=== PATIENT | female | born 1955 | race Caucasian/White ===

== ENCOUNTER 2019-08-09 11:08 | Emergency (ER) | payer BC ==
--- OUTSIDE RECORDS SUMMARY | 2019-08-09 11:15 | XMS REPORT | Continuity of Care Document ---
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 Chronic interstitial cystitis MARIBELL Aguero Onset: 06/07/2019 Gastroduodenitis MARIBELL Aguero Onset: 06/07/2019 Note: 09/2015 Social History Type Date Description Comments Sex Unknown ETOH Use Occasionally consumes alcohol Tobacco Use Start: Unknown Patient has never smoked Recreational Drug Use Denies Drug Use Smoking Status Reviewed: 06/06/19 Patient has never smoked Allergies, Adverse Reactions, Alerts Active Allergies Reaction Severity Comments Date Penicillin 06/06/2019 Medications Active Medications SIG Qnty Indications Ordering Provider Date Aspirin 81 1 by mouth Israel 06/06/2019 81mg Tablets every day MD MARYANNE Ventura Calcium 600 2 by mouth Israel 06/06/2019 600mg Tablets every day MD Lorenzo Multi For Her 50+ 1 by mouth 90caps Israel 06/06/2019 every day MD Lorenzo Capsules Cardizem CD twice a day Saud Kruger MD 120mg Caps ER 24HR History Medications Diltiazem HCL ER z I10 Israel Ventura, 06/07/2019 - Tablets 06/07/2019 GNP [facility] I10 Israel Ventura, 06/07/2019 - [employer] 06/07/2019 120mg Caps ER 24HR Diltiazem HCL ER twice a day 180caps I10 Israel Ventura, 06/06/2019 - 120mg 06/07/2019 Caps ER 12HR Immunizations CPT Code Status Date Vaccine Lot # [id number] Given 07/28/2010 Tdap - Tetanus/Diptheria/Acellular Pertussis Vital Signs Date Vital Result Comment 06/06/2019 11:09am Height 66.5 inches 5'6.50" Weight 187.00 lb Heart Rate 80 /min BP Systolic 144 mmHg BP Diastolic 76 mmHg Respiratory Rate 16 /min O2 % BldC Oximetry 98 % room air BMI (Body Mass Index) 29.7 kg/m2 Results Test Acquired Date Facility Test Result H/L Range Note Laboratory test 06/06/2019 [facility] Cytology SEE RESULT 1 , [address] [place] [address] [phone] 1 [id number] 2 SEE RESULT BELOW Name: FATUMA SQUIRES : [address]: Israel Ventura MD Acct: [id number] Unit: [id number] AGE: 64 Location: [facility] Re06/06/19 SEX: F Status: REG REF SPEC: [id number] CHEN: 06/06/191142 [facility] DR: Israel Ventura MD REQ: [id number] RECD: 06/06/195982 STATUS: SOUT _ ORDERED: TP IMAGE ANALYS COMMENTS: [id number] FINAL DIAGNOSIS Negative for Intraepithelial lesion or Malignancy SPECIMEN(S) RECEIVED A. Vaginal CYTOLOGY ADEQUACY Specimen Adequacy: Satisfactory of evaluation CYTOLOGY PATIENT INFORMATION Patient Information: HPV: Thin Layer Pap Test w/reflex to high risk HPV RNA testing when ASCUS Actual Specimen Date: 06/06/19 Post Menopausal?: Y Hysterectomy?: Y Signed by and Reported on: SHANNA Muse (ASCP) 1459 This Pap test was evaluated with the assistance of the ThinPrep Test Imaging System. Due to cytologic findings at the tool crib clerk microscope, comprehensive manual rescreening by a Parachute Harness Rigger may be required. The Pap Smear is a screening test designed to aid in the detection of premalignant and malignant conditions of the uterine cervix. It is not a diagnostic procedure and should not be used as the sole means of detecting cervical cancer. Both false- positive and false- negative reports do occur. Depending on your risk status, a Pap smear should be obtained and evaluated every 1-3 years. END OF REPORT DEPARTMENT OF PATHOLOGY, [address] [place] [address] Mark Anthony Mcfadden M.D. Director [facility] # [id number] Procedures Date Code Description Status 06/27/2019 [id number] Bone Mineral Density Test Completed 06/06/2019 [id number] Mammogram Completed 04/12/2018 [id number] Mammogram Completed 04/06/2017 [id number] Mammogram Completed 03/10/2016 [id number] Mammogram Completed 01/25/2013 [id number] Colonoscopy Completed Medical Devices Description No Information Available Encounters Type Date Location Provider Dx Diagnosis Office Visit 06/06/2019 [facility] Israel Z00.00 Encntr for general 11:00a MD Lorenzo adult medical exam w/o abnormal findings Z12.11 Encounter for screening for malignant neoplasm of colon I10 Essential (primary) hypertension Z12.31 Encntr screen mammogram for malignant neoplasm of breast Z12.4 Encounter for screening for malignant neoplasm of cervix Z78.0 Asymptomatic menopausal state Assessments Date Code Description Provider 06/06/2019 Z00.00 Encounter for general adult medical Israel Ventura MD examination without abnormal findings 06/06/2019 Z12.11 Encounter for screening for malignant Israel Ventura MD neoplasm of colon 06/06/2019 I10 Essential (primary) hypertension Israel Ventura MD 06/06/2019 Z12.31 Encounter for screening mammogram for Israel Ventura MD malignant neoplasm of breast 06/06/2019 Z12.4 Encounter for screening for malignant Israel Ventura MD neoplasm of cervix 06/06/2019 Z78.0 Asymptomatic menopausal state Israel Ventura MD Plan of Treatment Future Appointment(s):06/11/2020 9:00 am - MARIBELL Aguero at [facility] Primary Care06/06/2019 - Israel Ventura MDZ00.00 Encounter for general adult medical examination without abnormal sqgnigxmF35.11 Encounter for screening for malignant neoplasm of klwyaR36 Essential (primary) hypertensionNew Medication: Diltiazem HCL ER 120 mg - twice a dayNew Labs:Comp Metabolic Panel, Ordered: 07/15CBC Auto Diff, Ordered: 06/06/19Lipid Profile (Trig/Chol/HDL), Ordered: 07/15Urine Microalbumin Random, Ordered: 06/06/19Z12.31 Encounter for screening mammogram for malignant neoplasm of ajaykvE57.4 Encounter for screening for malignant neoplasm of qzbexpW43.0 Asymptomatic menopausal state Functional Status Description No Information Available Mental Status Description No Information Available Referrals Description No Information Available
--- NOTE | 2019-08-09 11:45 | UC ---
Respiratory Complaint HPI - HPI Summary HPI Summary: 64 y/o female presents to the urgent care c/o head congestion w/ pressure and yellowish nasal discharge, moderate PND, dry cough for the past week. Pt states she has been taking OTC medication w/o any improvement. Mild Sore throat and hoarseness developed yesterday. Pain is 4/10. Pt w/ Hx of sinusitis. Pt denies fever, SOB, dizziness, ear pain, chest pain, abdominal pain, N/V/D. - History of Current Complaint Stated Complaint: SORE THROAT, COUGH Time Seen by Provider: 08/09/19 11:44 Hx Obtained From: Patient Onset/Duration: Gradual Onset, Lasting Weeks - 1 week, Still Present, Worse Since - yesterday Timing: Constant Severity Initially: Mild Severity Currently: Moderate Pain Intensity: 3 - sore throat Pain Scale Used: 0-10 Numeric Character: Cough: Nonproductive Aggravating Factors: Recumbent Position Alleviating Factors: OTC Meds Associated Signs And Symptoms: Positive: URI, Nasal Congestion - yellowish nasal discharge, Hoarseness, Sinus Discomfort. Negative: Fever, Chills, Wheezing, Dizziness - Risk Factors Pulmonary Embolism Risk Factors: Negative Cardiac Risk Factors: Negative Pseudomonas Risk Factors: Negative Tuberculosis Risk Factors: Negative - Allergies/Home Medications Allergies/Adverse Reactions: Allergies Allergy/AdvReac Type Severity Reaction Status Date / Time Penicillins AdvReac yeast Verified 08/09/19 11:38 infection Home Medications: Home Medications Mucinex Multisymptom 1 dose PO QPM 08/09/19 [History Confirmed 08/09/19] Multivitamin [Once Daily] 1 each PO DAILY 08/09/19 [History Confirmed 08/09/19] dilTIAZem HCl [Diltiazem 24Hr ER] 120 mg PO BID 08/09/19 [History Confirmed ] PMH/Surg Hx/FS Hx/Imm Hx Previously Healthy: Yes - Pt denies PMHX - Surgical History Surgery Procedure, Year, and Place: Complete Hysterectomy 2011 - Family History Known Family History: Positive: None - Pt denies FMHX - Social History Occupation: Employed Full-time Lives: With Family Review of Systems All Other Systems Reviewed And Are Negative: Yes Constitutional: Positive: Negative Skin: Positive: Negative Eyes: Positive: Negative ENT: Positive: Sore Throat, Nasal Discharge - yellowish, Sinus Congestion, Sinus Pain/Tenderness, Other - moderate PND, hoarseness Respiratory: Positive: Cough - dry Cardiovascular: Positive: Negative Gastrointestinal: Positive: Negative Genitourinary: Positive: Negative Motor: Positive: Negative Neurovascular: Positive: Negative Musculoskeletal: Positive: Negative Neurological: Positive: Negative Psychological: Positive: Negative Is Patient Immunocompromised?: No Physical Exam - Summary Physical Exam Summary: Vitals: reviewed General: Well developed, well-nourished female patient with NAD. Head and face: Normocephalic and atraumatic, Positive tenderness over the frontal and maxillary sinuses.. Eyes: PERRLA, EOMI x 2. Normal conjunctiva. No eye discharge. ENT: Ears and TM with normal limits. Nose: edematous and erythematous nasal mucosa with with yellowish discharge and erythematous mucosa. Pharynx with erythema, no exudate. yellowish PND Neck: Supple, no JVD, no carotid bruits and no lymphadenopathy. Lungs: clear, no rales, no rhonchi, no wheezes. CVS: RRR, S1 and S2 present no murmurs or gallops appreciated. Abdomen: soft nontender with positive bowel sounds. Extremities: no edema noted. Neuro: WNL. Skin: warm and dry Triage Information Reviewed: Yes Respiratory Course/Dx - Course Course Of Treatment: 64 y/o female presents to the urgent care c/o head congestion w/ pressure and yellowish nasal discharge, moderate PND, dry cough for the past week. Pt states she has been taking OTC medication w/o any improvement. Mild Sore throat and hoarseness developed yesterday. Pain is 4/10. Pt w/ Hx of sinusitis. Pt denies fever, SOB, dizziness, ear pain, chest pain, abdominal pain, N/V/D. Hx obtained. Pt w/ acute bacterial sinusitis and also laryngitis. Pt explained it could be viral in nature due to her hoarseness. However she insists to be Rx antibiotics since she know symptoms will worsen. Pt Rx Amoxicillin PO and flonase nasal spray. Tessalon PO for cough. Discharge instructions explained to Pt. Advised to Return to the clinic or PCP if symptoms do not improve.Pt understood and agreed with plan of care. - Differential Dx/Diagnosis Differential Diagnosis/HQI/PQRI: Asthma, Bronchitis, Influenza, Laryngitis, Lower Resp Infection, Sinusitis Provider Diagnosis: Acute bacterial sinusitis Discharge ED - Sign-Out/Discharge Documenting (check all that apply): Patient Departure - D/C home All imaging exams completed and their final reports reviewed: No Studies - Discharge Plan Condition: Stable Disposition: HOME Prescriptions: Amoxicillin PO (*) [Amoxicillin 875 MG (*)] 875 mg PO BID #20 tab Fluticasone NASAL SPRAY 50MCG* [Flonase NASAL SPRAY 50MCG*] 2 spray BOTH NARES DAILY #1 btl Patient Education Materials: Sinusitis (ED) Referrals: Zena Garland PA [Primary Care Provider] - 3 Days Additional Instructions: 1- Please increase fluid intake and rest. take full course of antibiotics to avoid resistance. Take yogurts w/ probiotics or Culturelle to protect your GI system 2-Use Flonase as directed to help drain fluid. Also buy saline drops to clear sinuses 3-Please f/u w/ your PCP in 3 days if symptoms do not improve for further management and treatment - Billing Disposition and Condition Condition: STABLE Disposition: Home - Attestation Statements Provider Attestation: I was available for consult. This patient was seen by the EMANUEL. The patient was not presented to, seen by, or examined by me. -Doretha
[2019-08-09 11:48] VITALS: BP 132/74
== END 2019-08-09 12:11 | disposition home or self-care (01) ==
LOC: UCCORT 11:08
DX: J01.90 Acute sinusitis, unspecified (principal); R05 Cough; J02.9 Acute pharyngitis, unspecified; B96.89 Other specified bacterial agents as the cause of diseases classified elsewhere; Z88.0 Allergy status to penicillin
CPT/HCPCS: 99212; G0463